=== PATIENT | female | born 1960 | race African-American/Black ===

== ENCOUNTER 2020-03-09 06:43 | Emergency (ER) | payer BC ==
[2020-03-09 07:05] VITALS: BP 169/110; PULSE 90; TEMP 97; BMI 35.9
[2020-03-09] MEDS ORDERED: metroNIDAZOLE 500 MG TABLET PO ONE (07:33)
[2020-03-09] MEDS ORDERED: metroNIDAZOLE 250 MG TABLET ONE (07:41)
[2020-03-09 10:54] LABS: EPI CELLS >36 /uL (0-25.1); HYALINE CASTS 1 /uL (0-3.1); URINE APPEARANCE CLOUDY; URINE BACTERIA 903 /uL (0-1359); URINE BILIRUBIN NEGATIVE (NEGATIVE); URINE COLOR YELLOW; URINE GLUCOSE (UA) NEGATIVE (NEGATIVE); URINE KETONE NEGATIVE (NEGATIVE); URINE LEUK ESTERASE 2+ (NEGATIVE); URINE NITRITE NEGATIVE (NEGATIVE); URINE PROTEIN 3+ (NEGATIVE); URINE RBC 19 /uL (0-23.9); URINE UROBILINOGEN 0.2 mg/dL (0.2-1.0); URINE WBC 251 /uL (0-25.8)
== END 2020-03-09 08:01 | disposition home or self-care (01) ==
LOC: JER 06:43
DX: N76.0 Acute vaginitis (principal)
CPT/HCPCS: 81003; 87070; 87077; 87086; 87205; 99283-25

== ENCOUNTER 2020-03-17 03:26 | Inpatient (IN) | payer BC ==
[2020-03-17] MEDS ORDERED: ASPIRIN 81 MG CHEWABLE TABLETS PO ONE (03:49)
[2020-03-17] MEDS ORDERED: ASPIRIN 81 MG CHEWABLE TABLETS ONE (03:53)
[2020-03-17 04:03] LABS: BASO % 0.9 % (0-2.0); EOS % 2.3 % (0-4.5); HEMATOCRIT 37.9 % (32.4-45.2); HEMOGLOBIN 12.2 GM/dL (10.7-15.3); LYMPH % 17.7 % (8-40); MCH 25.1 pg (25.7-33.7); MCHC 32.2 g/dl (32.0-36.0); MEAN CELL VOLUME 78.1 fl (80-96); MEAN PLT VOLUME 8.6 fl (7.5-11.1); MONO % 7.8 % (3.8-10.2); NEUT % 71.3 % (42.8-82.8); PLATELET COUNT 223 K/MM3 (134-434); RBC 4.86 M/mm3 (3.60-5.2); RDW 15.6 % (11.6-15.6); WHITE BLOOD COUNT 8.6 K/mm3 (4.0-10.0)
[2020-03-17] MEDS ORDERED: hydrALAZINE HCL 25 MG TABLET (FP) PO ONE (04:05)
[2020-03-17] MEDS ORDERED: LISINOPRIL 20 MG TABLET PO ONE ×2 (04:06→18:35)
[2020-03-17 04:14] LABS: INR 0.98 (0.83-1.09); PROTHROMBIN TIME (PATIENT) 11.9 SEC (9.7-13.0)
[2020-03-17] MEDS ORDERED: LISINOPRIL 20 MG TABLET ONE (04:15)
[2020-03-17] MEDS ORDERED: hydrALAZINE HCL 25 MG TABLET (FP) ONE (04:15)
[2020-03-17 04:20] LABS: CHLORIDE 109 mmol/L (98-107); SODIUM 141 mmol/L (136-145)
[2020-03-17 04:23] LABS: ALBUMIN 3.2 g/dl (3.4-5.0); ANION GAP 5 MMOL/L (8-16); BLOOD UREA NITROGEN 15.5 mg/dL (7-18); CALCIUM 8.5 mg/dL (8.5-10.1); CO2 26 mmol/L (21-32)
[2020-03-17 04:24] LABS: GLUCOSE,RANDOM 100 mg/dL (74-106)
[2020-03-17 04:26] LABS: SGPT/ALT 26 U/L (13-61)
[2020-03-17 04:27] LABS: SGOT/AST 27 U/L (15-37)
[2020-03-17 04:28] LABS: TOT PROT 7.1 g/dl (6.4-8.2)
[2020-03-17 04:29] LABS: ALK PHOS 66 U/L (45-117)
[2020-03-17 04:33] LABS: BILIRUBIN,TOTAL 0.2 mg/dL (0.2-1)
[2020-03-17] MEDS ORDERED: DEXAMETHASONE SOD PHOSPHATE 10 MG/1 ML VIAL IVPUSH ONE ×2 (04:48)
[2020-03-17] MEDS ORDERED: AZITHROMYCIN IVPB 500 MG in DEXTROSE 5%-WATER - 250 ML IVPB ONE (04:48)
[2020-03-17 04:51] LABS: MAGNESIUM 2.1 mg/dL (1.8-2.4)
[2020-03-17 04:55] LABS: PHOSPHOROUS 3.3 mg/dL (2.5-4.9)
[2020-03-17] MEDS ORDERED: DEXAMETHASONE SOD PHOSPHATE 10 MG/1 ML VIAL ONE (04:56)
[2020-03-17] MEDS ORDERED: AZITHROMYCIN IVPB 500 MG/250 ML BAG IVPB ONE (04:56)
[2020-03-17 04:59] LABS: LDH 233 U/L (84-246); N-TERMINAL BNP 1215.1 pg/ml (5-125)
[2020-03-17] MEDS: NITROGLYCERIN SUBLINGUAL 1/150 0.4 MG TAB SL SCH (05:04)
[2020-03-17 07:24] LABS: LDH 190 U/L (84-246)
[2020-03-17] MEDS ORDERED: PANTOPRAZOLE 40 MG TABLET PO ONE (08:15)
[2020-03-17] MEDS ORDERED: ATORVASTATIN CA 40 MG TABLET (FP) PO ONE (08:15)
[2020-03-17] MEDS ORDERED: CEFTRIAXONE 1 GM in DEXTROSE 5%-WATER - 50 ML IVPB ONE (08:15)
[2020-03-17] MEDS ORDERED: ZINC SULFATE 220 MG CAPSULE (FP) ONE (09:27)
[2020-03-17] MEDS ORDERED: PANTOPRAZOLE 40 MG TABLET ONE (09:27)
[2020-03-17] MEDS ORDERED: ASCORBIC ACID 500 MG TABLET (FP) ONE (09:27)
[2020-03-17] MEDS ORDERED: CEFTRIAXONE 1 GM/50 ML BAG ONE (09:28)
[2020-03-17] MEDS ORDERED: ATORVASTATIN CA 40 MG TABLET (FP) ONE (09:28)
[2020-03-17] MEDS: ASCORBIC ACID 500 MG TABLET (FP) PO SCH ×2 (09:29→21:57)
[2020-03-17] MEDS ORDERED: ZINC SULFATE 220 MG CAPSULE (FP) PO SCH ×2 (10:00)
[2020-03-17] MEDS ORDERED: ASCORBIC ACID 500 MG TABLET (FP) PO SCH (10:00)
[2020-03-17] MEDS ORDERED: ENOXAPARIN NA (PORCINE) 40 MG/0.4 ML DISP.SYRIN SQ ONE (15:06)
[2020-03-17] MEDS: ENOXAPARIN NA (PORCINE) 40 MG/0.4 ML DISP.SYRIN SQ SCH (15:09)
[2020-03-17 18:49] VITALS: BMI 36.6
[2020-03-17] MEDS ORDERED: PNEUMOC 13-VAL CONJ-DIP CRM/PF 0.5 ML DISP.SYRIN IM ONE (18:49)
[2020-03-17] MEDS ORDERED: PNEUMOCOCCAL 23 VACCINE 0.5 ML VIAL IM ONE (19:30)
[2020-03-18] MEDS ORDERED: cefTRIAXone SODIUM 1 GM VIAL ONE (09:33)
[2020-03-18] MEDS ORDERED: DEXTROSE 5%-WATER - 50 ML IVPB ONE (09:34)
[2020-03-18] MEDS ORDERED: AZITHROMYCIN IVPB 500 MG/250 ML BAG IVPB SCH (10:00)
[2020-03-18] MEDS: ZINC SULFATE 220 MG CAPSULE (FP) PO SCH (10:18)
[2020-03-18] MEDS: ENOXAPARIN NA (PORCINE) 40 MG/0.4 ML DISP.SYRIN SQ SCH (10:18)
[2020-03-18] MEDS: ASCORBIC ACID 500 MG TABLET (FP) PO SCH ×2 (10:18→22:08)
[2020-03-18] MEDS: CEFTRIAXONE 1 GM in DEXTROSE 5%-WATER - 50 ML IVPB SCH (10:36)
[2020-03-18 11:18] LABS: BASO % 0.4 % (0-2.0); EOS % 0.7 % (0-4.5); HEMATOCRIT 36.5 % (32.4-45.2); HEMOGLOBIN 11.5 GM/dL (10.7-15.3); LYMPH % 17.8 % (8-40); MCH 24.9 pg (25.7-33.7); MCHC 31.5 g/dl (32.0-36.0); MEAN PLT VOLUME 9.1 fl (7.5-11.1); MONO % 9.6 % (3.8-10.2); NEUT % 71.5 % (42.8-82.8); PLATELET COUNT 225 K/MM3 (134-434); RBC 4.62 M/mm3 (3.60-5.2); RDW 15.8 % (11.6-15.6); WHITE BLOOD COUNT 11.6 K/mm3 (4.0-10.0)
[2020-03-18 12:11] LABS: ALBUMIN 2.9 g/dl (3.4-5.0); ALK PHOS 58 U/L (45-117); ANION GAP 9 MMOL/L (8-16); BILIRUBIN,TOTAL 0.2 mg/dL (0.2-1); CALCIUM 8.6 mg/dL (8.5-10.1); CHLORIDE 110 mmol/L (98-107); CO2 21 mmol/L (21-32); CREATININE 1.1 mg/dL (0.55-1.3); GLUCOSE,RANDOM 87 mg/dL (74-106); POTASSIUM 4.1 mmol/L (3.5-5.1); SGOT/AST 19 U/L (15-37); SGPT/ALT 22 U/L (13-61); SODIUM 139 mmol/L (136-145); TOT PROT 6.6 g/dl (6.4-8.2)
[2020-03-18 12:23] LABS: LDH QNS U/L (84-246)
[2020-03-18] MEDS: DOXYCYCLINE HYCLATE 100 MG CAPSULE PO SCH (18:01)
[2020-03-18] MEDS ORDERED: hydrALAZINE HCL 25 MG TABLET (FP) PO ONE (19:47)
[2020-03-18] MEDS ORDERED: PATIENT'S OWN MEDICATION (NON-FORMULARY) (Lisinopril/Hydrochlorothiazide [Lisinopril-Hctz PO SCH (22:00)
[2020-03-18] MEDS ORDERED: hydrALAZINE HCL 25 MG TABLET (FP) PO SCH (22:00)
[2020-03-18] MEDS: HYDROCHLOROTHIAZIDE 12.5 MG CAPSULE (FP) PO SCH (22:08)
[2020-03-18] MEDS: LISINOPRIL 20 MG TABLET PO SCH (22:08)
[2020-03-18] MEDS: hydrALAZINE HCL 25 MG TABLET (FP) PO SCH (22:09)
[2020-03-19] MEDS: hydrALAZINE HCL 25 MG TABLET (FP) PO SCH (05:34)
[2020-03-19 07:07] LABS: HEMOGLOBIN 12.4 GM/dL (10.7-15.3); MCH 25.5 pg (25.7-33.7); MCHC 32.5 g/dl (32.0-36.0); MEAN CELL VOLUME 78.3 fl (80-96); MEAN PLT VOLUME 8.5 fl (7.5-11.1); PLATELET COUNT 241 K/MM3 (134-434); RBC 4.85 M/mm3 (3.60-5.2); RDW 15.8 % (11.6-15.6); WHITE BLOOD COUNT 9.9 K/mm3 (4.0-10.0)
[2020-03-19 07:25] LABS: CALCIUM 8.4 mg/dL (8.5-10.1)
[2020-03-19 07:26] LABS: ALBUMIN 2.9 g/dl (3.4-5.0); BLOOD UREA NITROGEN 18.5 mg/dL (7-18)
[2020-03-19 07:29] LABS: CREATININE 1.2 mg/dL (0.55-1.3)
[2020-03-19 07:30] LABS: BILIRUBIN,TOTAL 0.3 mg/dL (0.2-1)
[2020-03-19 07:31] LABS: TOT PROT 6.6 g/dl (6.4-8.2)
[2020-03-19] MEDS ORDERED: amLODIPine BESYLATE 5 MG TABLET (FP) PO ONE (07:39)
[2020-03-19] MEDS ORDERED: ATORVASTATIN CA 10 MG TABLET (FP) PO SCH (10:00)
[2020-03-19] MEDS ORDERED: cefTRIAXone SODIUM 1 GM VIAL ONE (10:27)
[2020-03-19] MEDS ORDERED: DEXTROSE 5%-WATER - 50 ML IVPB ONE (10:28)
[2020-03-19] MEDS: ASCORBIC ACID 500 MG TABLET (FP) PO SCH (10:52)
[2020-03-19] MEDS: HYDROCHLOROTHIAZIDE 12.5 MG CAPSULE (FP) PO SCH (10:52)
[2020-03-19] MEDS: DOXYCYCLINE HYCLATE 100 MG CAPSULE PO SCH ×2 (10:52→18:33)
[2020-03-19] MEDS: LISINOPRIL 20 MG TABLET PO SCH (10:52)
[2020-03-19] MEDS: ZINC SULFATE 220 MG CAPSULE (FP) PO SCH (10:52)
[2020-03-19] MEDS: CEFTRIAXONE 1 GM in DEXTROSE 5%-WATER - 50 ML IVPB SCH (10:53)
[2020-03-19] MEDS: ENOXAPARIN NA (PORCINE) 40 MG/0.4 ML DISP.SYRIN SQ SCH (10:53)
[2020-03-19 12:05] LABS: HIV INTERPRETATION NEGATIVE (NEGATIVE)
[2020-03-19 14:09] VITALS: TEMP 98.8
[2020-03-19 14:23] VITALS: BP 153/97; PULSE 80
[2020-03-19 15:56] LABS: MAGNESIUM 2.1 mg/dL (1.8-2.4)
[2020-03-19 16:00] LABS: PHOSPHOROUS 3.7 mg/dL (2.5-4.9)
[2020-03-19] MEDS ORDERED: hydrALAZINE HCL 50 MG TABLET (FP) PO SCH (22:00)
[2020-03-19] MEDS ORDERED: METOPROLOL TARTRATE 50 MG TABLET (FP) PO SCH (22:00)
[2020-03-20] MEDS ORDERED: amLODIPine BESYLATE 5 MG TABLET (FP) PO SCH (10:00)
[2020-03-20] MEDS ORDERED: SPIRONOLACTONE 25 MG TABLET PO SCH (10:00)
== END 2020-03-19 18:42 | disposition home or self-care (01) | DRG 194 ==
LOC: JER 03:26 → JERBED 04:55 → J4W 17:52
PROVIDERS: ATTEND Internal Medicine
DX: J18.9 Pneumonia, unspecified organism (principal); I42.8 Other cardiomyopathies; I50.22 Chronic systolic (congestive) heart failure; I24.8 Other forms of acute ischemic heart disease; R07.89 Other chest pain; I10 Essential (primary) hypertension; E78.5 Hyperlipidemia, unspecified; H81.10 Benign paroxysmal vertigo, unspecified ear; F41.9 Anxiety disorder, unspecified; E66.9 Obesity, unspecified; Z68.36 Body mass index [BMI] 36.0-36.9, adult; H81.01 Meniere's disease, right ear; Z20.828 Contact with and (suspected) exposure to other viral communicable diseases; R59.0 Localized enlarged lymph nodes; R06.00 Dyspnea, unspecified; I11.0 Hypertensive heart disease with heart failure; R91.8 Other nonspecific abnormal finding of lung field
CPT/HCPCS: 36415; 71045-TC-FY; 71275-TC; 80053; 82550; 82553; 82728; 83615; 83735; 83880; 84100; 84443; 84484; 85025; 85027; 85379; 85610; 85651; 85730; 86140; 86850; 86900; 86901; 87389; 87804; 93005; 93010; 93306-TC; 93970-TC; 99285-25; C9803; J1100; Q9967; U0003

== ENCOUNTER 2020-08-07 07:25 | Emergency (ER) | payer BC ==
[2020-08-07 07:34] VITALS: BMI 35.3
[2020-08-07] MEDS ORDERED: ACETAMINOPHEN 500 MG TABLET (FP) PO ONE (08:56)
[2020-08-07] MEDS ORDERED: ACETAMINOPHEN 325 MG TABLET (FP) ONE (09:00)
[2020-08-07 09:54] VITALS: BP 180/102; PULSE 75; TEMP 98
== END 2020-08-07 09:40 | disposition home or self-care (01) ==
LOC: JER 07:25
DX: M25.522 Pain in left elbow (principal)
CPT/HCPCS: 99283-25

== ENCOUNTER 2020-10-12 00:10 | Inpatient (IN) | payer BC ==
[2020-10-12] MEDS ORDERED: ALBUTEROL SO4 2.5/IPRATROPIUM 0.5 INH SOL 3 ML VIAL.NEB. NEB ONE (00:14)
[2020-10-12 00:35] LABS: BASO % 0.9 % (0-2.0); EOS % 2.1 % (0-4.5); HEMATOCRIT 38.4 % (32.4-45.2); HEMOGLOBIN 12.1 GM/dL (10.7-15.3); LYMPH % 37.6 % (8-40); MCH 25.2 pg (25.7-33.7); MCHC 31.5 g/dl (32.0-36.0); MEAN PLT VOLUME 8.2 fl (7.5-11.1); MONO % 7.2 % (3.8-10.2); NEUT % 52.2 % (42.8-82.8); PLATELET COUNT 244 10^3/uL (134-434); RDW 15.3 % (11.6-15.6); WHITE BLOOD COUNT 19.7 K/mm3 (4.0-10.0)
[2020-10-12] MEDS ORDERED: LABETALOL HCL 5 MG/1 ML (100MG/20 ML VIAL) IVPUSH ONE (00:35)
[2020-10-12] MEDS ORDERED: methylPREDNISolone NA SUCC 125 MG/2 ML VIAL IVPUSH ONE (00:35)
[2020-10-12 00:37] LABS: VENOUS BASE EXCESS -6.8 mmol/L (-2-2); VENOUS O2 SATURATION 78.4 % (70-80); VENOUS PCO2 66.2 mmHg (38-52)
[2020-10-12] MEDS ORDERED: ALBUTEROL SO4 0.5 % INH SOLN 2.5 MG/0.5 ML VIAL.NEB. NEB ONE (00:37)
[2020-10-12] MEDS ORDERED: LABETALOL HCL 5 MG/1 ML (100MG/20 ML VIAL) ONE (00:37)
[2020-10-12] MEDS: ALBUTEROL SO4 2.5/IPRATROPIUM 0.5 INH SOL 3 ML VIAL.NEB. NEB SCH (00:37)
[2020-10-12] MEDS ORDERED: ALBUTEROL SO4 0.5 % INH SOLN 2.5 MG/0.5 ML VIAL.NEB. NEB PRN (00:39)
[2020-10-12] MEDS: NITROGLYCERIN SUBLINGUAL 1/150 0.4 MG TAB SL PRN ×2 (00:40→00:45)
[2020-10-12 00:41] LABS: VENOUS PH 7.158 (7.310-7.410)
[2020-10-12] MEDS ORDERED: NITROGLYCERIN 25MG/D5W 250ML 25 MG/250 ML ML IVPB SCH ×3 (00:45→08:00)
[2020-10-12] MEDS ORDERED: methylPREDNISolone NA SUCC 125 MG/2 ML VIAL ONE (00:46)
[2020-10-12] MEDS ORDERED: FUROSEMIDE 40 MG/4 ML INJECTABLE VIAL IVPUSH ONE (00:50)
[2020-10-12] MEDS ORDERED: ALBUTEROL SO4 0.083% IH SOL 2.5 MG/3 ML VIAL.NEB. NEB ONE (00:58)
[2020-10-12 01:03] LABS: CALCIUM 8.3 mg/dL (8.5-10.1)
[2020-10-12] MEDS: ALBUTEROL SO4 0.5 % INH SOLN 2.5 MG/0.5 ML VIAL.NEB. NEB PRN ×4 (01:03→01:35)
[2020-10-12 01:04] LABS: ALBUMIN 3.1 g/dl (3.4-5.0); BLOOD UREA NITROGEN 24.7 mg/dL (7-18); MAGNESIUM 2.1 mg/dL (1.8-2.4)
[2020-10-12] MEDS ORDERED: FUROSEMIDE 40 MG/4 ML INJECTABLE VIAL ONE (01:04)
[2020-10-12 01:07] LABS: CREATININE 1.5 mg/dL (0.55-1.3)
[2020-10-12 01:08] LABS: BILIRUBIN,TOTAL 0.4 mg/dL (0.2-1); TOT PROT 7.6 g/dl (6.4-8.2)
[2020-10-12] MEDS ORDERED: ASPIRIN 81 MG CHEWABLE TABLETS PO ONE (01:13)
[2020-10-12 01:27] VITALS: BMI 34.3
[2020-10-12 01:27] LABS: LACTIC ACID 5.5 mmol/L (0.4-2.0)
[2020-10-12 02:15] LABS: N-TERMINAL BNP 2061.3 pg/ml (5-125)
[2020-10-12] MEDS ORDERED: ASPIRIN 81 MG CHEWABLE TABLETS ONE (02:27)
[2020-10-12 02:58] LABS: ARTERIAL BLD GAS O2 SATURATION 94.7 % (95-98); ARTERIAL BLOOD GAS BASE EXCESS -2.3 mmol/L (-2-2); ARTERIAL BLOOD GAS PO2 76.7 mmHg (80-100); ARTERIAL BLOOD GAS pH 7.351 (7.350-7.450)
[2020-10-12 03:01] LABS: ALLENS TEST POSITIVE
[2020-10-12 03:02] LABS: VENT RATE 16
[2020-10-12] MEDS ORDERED: ACETAMINOPHEN 325 MG TABLET (FP) PO PRN (03:11)
[2020-10-12] MEDS ORDERED: AZITHROMYCIN IVPB 500 MG/250 ML BAG IVPB ONE ×2 (03:21→03:37)
[2020-10-12] MEDS ORDERED: ALBUTEROL SO4 HFA INHALER IH PRN (03:21)
[2020-10-12] MEDS ORDERED: ALBUTEROL SO4 2.5/IPRATROPIUM 0.5 INH SOL 3 ML VIAL.NEB. NEB PRN (03:21)
[2020-10-12] MEDS: methylPREDNISolone NA SUCC 40 MG/1 ML VIAL IVPUSH SCH ×3 (03:47→17:45)
[2020-10-12] MEDS ORDERED: PT OWN MED DRAWER 7, Y5N ONE (06:39)
[2020-10-12] MEDS: BUDESONIDE/FORMETEROL FUMARATE 160/4.5 mcg INHALER IH SCH ×3 (06:39→21:59)
[2020-10-12 07:09] LABS: BASO % 0.3 % (0-2.0); EOS % 0.1 % (0-4.5); HEMATOCRIT 35.9 % (32.4-45.2); HEMOGLOBIN 11.6 GM/dL (10.7-15.3); LYMPH % 4.5 % (8-40); MCH 25.3 pg (25.7-33.7); MCHC 32.4 g/dl (32.0-36.0); MEAN CELL VOLUME 78.3 fl (80-96); MEAN PLT VOLUME 8.3 fl (7.5-11.1); MONO % 1.9 % (3.8-10.2); NEUT % 93.2 % (42.8-82.8); PLATELET COUNT 194 10^3/uL (134-434); RBC 4.58 M/mm3 (3.60-5.2); RDW 14.8 % (11.6-15.6); WHITE BLOOD COUNT 10.1 K/mm3 (4.0-10.0)
[2020-10-12 07:26] LABS: ALBUMIN 3.2 g/dl (3.4-5.0); BLOOD UREA NITROGEN 26.3 mg/dL (7-18); CALCIUM 8.4 mg/dL (8.5-10.1); MAGNESIUM 1.7 mg/dL (1.8-2.4)
[2020-10-12 07:29] LABS: CREATININE 1.3 mg/dL (0.55-1.3)
[2020-10-12 07:30] LABS: PHOSPHOROUS 3.4 mg/dL (2.5-4.9); TOT PROT 7.2 g/dl (6.4-8.2)
[2020-10-12 07:31] LABS: BILIRUBIN,TOTAL 0.4 mg/dL (0.2-1)
[2020-10-12] MEDS ORDERED: HEPARIN NA (PORCINE) 5,000 UNITS/ML 1ML VIAL ONE (07:39)
[2020-10-12] MEDS: HEPARIN NA (PORCINE) 5,000 UNITS/ML 1ML VIAL SQ SCH ×3 (07:55→21:28)
[2020-10-12] MEDS ORDERED: POTASSIUM CHLORIDE TABS 20 MEQ TABLET.ER (FP) PO ONE ×2 (08:26→11:35)
[2020-10-12] MEDS ORDERED: MAGNESIUM OXIDE 400 MG TABLET (FP) PO ONE ×2 (08:26→11:35)
[2020-10-12] MEDS ORDERED: cefTRIAXone SODIUM 1 GM VIAL ONE (10:35)
[2020-10-12] MEDS ORDERED: DEXTROSE 5%-WATER - 50 ML IVPB ONE (10:35)
[2020-10-12] MEDS: FUROSEMIDE 40 MG/4 ML INJECTABLE VIAL IVPUSH SCH (10:38)
[2020-10-12] MEDS: METOPROLOL TARTRATE 50 MG TABLET (FP) PO SCH ×2 (10:38→21:28)
[2020-10-12] MEDS: hydrALAZINE HCL 25 MG TABLET (FP) PO SCH ×2 (10:38→21:28)
[2020-10-12] MEDS: CEFTRIAXONE 1 GM in DEXTROSE 5%-WATER - 50 ML IVPB SCH (10:38)
[2020-10-12 11:14] LABS: ANISOCYTOSIS 1+; MACROCYTOSIS 0; OVALOCYTE 1+; PLATELET ESTIMATE NORMAL; TEAR DROP CELLS 1+
[2020-10-12] MEDS ORDERED: LISINOPRIL 10 MG TABLET PO ONE (11:34)
[2020-10-12] MEDS: ATORVASTATIN CA 40 MG TABLET (FP) PO SCH (21:28)
[2020-10-12] MEDS: INSULIN SLIDING SCALE (NOVOLOG) 1 VIAL SQ SCH (21:37)
[2020-10-12 23:45] LABS: EPI CELLS >36 /uL (0-25.1); HYALINE CASTS 1 /uL (0-3.1); PH,URINE 5.5 (5.0-8.0); URINE APPEARANCE CLEAR; URINE BACTERIA 279 /uL (0-1359); URINE BILIRUBIN NEGATIVE (NEGATIVE); URINE COLOR YELLOW; URINE GLUCOSE (UA) NEGATIVE (NEGATIVE); URINE KETONE NEGATIVE (NEGATIVE); URINE LEUK ESTERASE NEGATIVE (NEGATIVE); URINE NITRITE NEGATIVE (NEGATIVE); URINE PROTEIN 3+ (NEGATIVE); URINE RBC 18 /uL (0-23.9); URINE UROBILINOGEN 0.2 mg/dL (0.2-1.0); URINE WBC 11 /uL (0-25.8)
[2020-10-13] MEDS: methylPREDNISolone NA SUCC 40 MG/1 ML VIAL IVPUSH SCH ×4 (01:06→21:15)
[2020-10-13] MEDS: HEPARIN NA (PORCINE) 5,000 UNITS/ML 1ML VIAL SQ SCH ×3 (06:23→21:15)
[2020-10-13 07:11] LABS: BASO % 0.2 % (0-2.0); HEMATOCRIT 37.9 % (32.4-45.2); LYMPH % 4.9 % (8-40); MCH 24.9 pg (25.7-33.7); MCHC 31.8 g/dl (32.0-36.0); MEAN CELL VOLUME 78.3 fl (80-96); MONO % 3.6 % (3.8-10.2); NEUT % 91.3 % (42.8-82.8); PLATELET COUNT 207 10^3/uL (134-434); RBC 4.84 M/mm3 (3.60-5.2); RDW 15.2 % (11.6-15.6); WHITE BLOOD COUNT 20.2 K/mm3 (4.0-10.0)
[2020-10-13] MEDS: INSULIN SLIDING SCALE (NOVOLOG) 1 VIAL SQ SCH ×4 (07:23→21:16)
[2020-10-13 07:38] LABS: ALBUMIN 3.1 g/dl (3.4-5.0); BLOOD UREA NITROGEN 31.4 mg/dL (7-18); CALCIUM 8.3 mg/dL (8.5-10.1); MAGNESIUM 2.3 mg/dL (1.8-2.4)
[2020-10-13 07:40] LABS: CREATININE 1.2 mg/dL (0.55-1.3)
[2020-10-13 07:42] LABS: BILIRUBIN,TOTAL 0.2 mg/dL (0.2-1); TOT PROT 7.2 g/dl (6.4-8.2)
[2020-10-13 10:40] LABS: ANISOCYTOSIS 0; HELMET CELLS 0; HOWELL-JOLLY BODIES 0; MACROCYTOSIS 0; OVALOCYTE 0; PLATELET ESTIMATE NORMAL; ROULEAU 0; SICKELED CELLS 0; TARGET CELLS 0; TEAR DROP CELLS 0; TOXIC GRANULATION 0
[2020-10-13] MEDS ORDERED: DEXTROSE 5%-WATER - 50 ML IVPB ONE (10:54)
[2020-10-13] MEDS ORDERED: cefTRIAXone SODIUM 1 GM VIAL ONE (10:54)
[2020-10-13] MEDS: METOPROLOL TARTRATE 50 MG TABLET (FP) PO SCH ×2 (11:26→21:15)
[2020-10-13] MEDS: FUROSEMIDE 40 MG/4 ML INJECTABLE VIAL IVPUSH SCH (11:26)
[2020-10-13] MEDS: LISINOPRIL 10 MG TABLET PO SCH (11:26)
[2020-10-13] MEDS: hydrALAZINE HCL 25 MG TABLET (FP) PO SCH (11:26)
[2020-10-13] MEDS: CEFTRIAXONE 1 GM in DEXTROSE 5%-WATER - 50 ML IVPB SCH (11:27)
[2020-10-13] MEDS: BUDESONIDE/FORMETEROL FUMARATE 160/4.5 mcg INHALER IH SCH ×2 (11:28→21:16)
[2020-10-13] MEDS: AZITHROMYCIN IVPB 250 MG in DEXTROSE 5%-WATER - 250 ML IVPB SCH (11:28)
[2020-10-13] MEDS ORDERED: INSULIN (NOVOLOG) ASPART 100 UNITS/ML 10ML VIAL ONE (14:09)
[2020-10-13] MEDS ORDERED: hydrALAZINE HCL 20 MG/ML VIAL IVPUSH ONE (18:02)
[2020-10-13] MEDS: ATORVASTATIN CA 40 MG TABLET (FP) PO SCH (21:15)
[2020-10-13] MEDS: hydrALAZINE HCL 50 MG TABLET (FP) PO SCH (21:15)
[2020-10-14] MEDS: HEPARIN NA (PORCINE) 5,000 UNITS/ML 1ML VIAL SQ SCH ×3 (06:15→21:20)
[2020-10-14] MEDS: hydrALAZINE HCL 50 MG TABLET (FP) PO SCH ×3 (06:15→21:21)
[2020-10-14] MEDS: INSULIN SLIDING SCALE (NOVOLOG) 1 VIAL SQ SCH ×4 (06:16→21:25)
[2020-10-14 07:19] LABS: BASO % 0.3 % (0-2.0); HEMATOCRIT 40.1 % (32.4-45.2); LYMPH % 5.4 % (8-40); MCH 25.5 pg (25.7-33.7); MCHC 32.4 g/dl (32.0-36.0); MEAN CELL VOLUME 78.8 fl (80-96); MEAN PLT VOLUME 8.6 fl (7.5-11.1); MONO % 3.1 % (3.8-10.2); NEUT % 91.2 % (42.8-82.8); PLATELET COUNT 191 10^3/uL (134-434); RBC 5.09 M/mm3 (3.60-5.2); RDW 15.1 % (11.6-15.6); WHITE BLOOD COUNT 18.9 K/mm3 (4.0-10.0)
[2020-10-14] MEDS: LISINOPRIL 10 MG TABLET PO SCH ×2 (08:28→10:27)
[2020-10-14 08:29] LABS: CALCIUM 8.7 mg/dL (8.5-10.1)
[2020-10-14] MEDS: METOPROLOL TARTRATE 50 MG TABLET (FP) PO SCH ×3 (08:29→21:21)
[2020-10-14 08:30] LABS: BLOOD UREA NITROGEN 34.8 mg/dL (7-18); MAGNESIUM 2.6 mg/dL (1.8-2.4)
[2020-10-14] MEDS: BUDESONIDE/FORMETEROL FUMARATE 160/4.5 mcg INHALER IH SCH ×3 (08:30→21:26)
[2020-10-14] MEDS: methylPREDNISolone NA SUCC 40 MG/1 ML VIAL IVPUSH SCH ×3 (08:32→21:20)
[2020-10-14 08:33] LABS: CREATININE 1.3 mg/dL (0.55-1.3)
[2020-10-14 08:34] LABS: BILIRUBIN,TOTAL 0.2 mg/dL (0.2-1); TOT PROT 6.9 g/dl (6.4-8.2)
[2020-10-14] MEDS ORDERED: cefTRIAXone SODIUM 1 GM VIAL ONE (09:24)
[2020-10-14] MEDS ORDERED: DEXTROSE 5%-WATER - 50 ML IVPB ONE (09:24)
[2020-10-14] MEDS ORDERED: REGADENOSON 0.4 MG/5 ML PRE-FILLED SYRINGE IVPUSH ONE ×2 (09:27→12:00)
[2020-10-14 09:32] LABS: ANISOCYTOSIS 0; MACROCYTOSIS 0; PLATELET ESTIMATE NORMAL
[2020-10-14] MEDS: FUROSEMIDE 40 MG/4 ML INJECTABLE VIAL IVPUSH SCH (12:17)
[2020-10-14] MEDS: AZITHROMYCIN IVPB 250 MG in DEXTROSE 5%-WATER - 250 ML IVPB SCH (12:17)
[2020-10-14] MEDS: CEFTRIAXONE 1 GM in DEXTROSE 5%-WATER - 50 ML IVPB SCH (12:17)
[2020-10-14] MEDS: ATORVASTATIN CA 40 MG TABLET (FP) PO SCH (21:21)
[2020-10-15] MEDS: hydrALAZINE HCL 50 MG TABLET (FP) PO SCH ×2 (05:48→13:19)
[2020-10-15] MEDS: HEPARIN NA (PORCINE) 5,000 UNITS/ML 1ML VIAL SQ SCH ×2 (05:48→13:18)
[2020-10-15] MEDS: INSULIN SLIDING SCALE (NOVOLOG) 1 VIAL SQ SCH ×2 (06:00→12:19)
[2020-10-15 07:18] LABS: BASO % 0.1 % (0-2.0); HEMATOCRIT 38.8 % (32.4-45.2); HEMOGLOBIN 12.5 GM/dL (10.7-15.3); MCH 25.1 pg (25.7-33.7); MCHC 32.3 g/dl (32.0-36.0); MEAN CELL VOLUME 77.9 fl (80-96); MEAN PLT VOLUME 8.6 fl (7.5-11.1); MONO % 5.1 % (3.8-10.2); NEUT % 87.8 % (42.8-82.8); PLATELET COUNT 238 10^3/uL (134-434); RBC 4.99 M/mm3 (3.60-5.2); WHITE BLOOD COUNT 16.6 K/mm3 (4.0-10.0)
[2020-10-15 07:48] LABS: CALCIUM 8.7 mg/dL (8.5-10.1)
[2020-10-15 07:50] LABS: MAGNESIUM 2.5 mg/dL (1.8-2.4)
[2020-10-15 07:53] LABS: CREATININE 1.4 mg/dL (0.55-1.3)
[2020-10-15 07:54] LABS: BILIRUBIN,TOTAL 0.2 mg/dL (0.2-1)
[2020-10-15 09:22] LABS: ANISOCYTOSIS 0; MACROCYTOSIS 0; PLATELET ESTIMATE NORMAL
[2020-10-15] MEDS ORDERED: DEXTROSE 5%-WATER - 50 ML IVPB ONE (10:04)
[2020-10-15] MEDS ORDERED: cefTRIAXone SODIUM 1 GM VIAL ONE (10:04)
[2020-10-15] MEDS: methylPREDNISolone NA SUCC 40 MG/1 ML VIAL IVPUSH SCH (10:31)
[2020-10-15] MEDS: LISINOPRIL 10 MG TABLET PO SCH (10:31)
[2020-10-15] MEDS: AZITHROMYCIN IVPB 250 MG in DEXTROSE 5%-WATER - 250 ML IVPB SCH (10:32)
[2020-10-15] MEDS: BUDESONIDE/FORMETEROL FUMARATE 160/4.5 mcg INHALER IH SCH (10:32)
[2020-10-15] MEDS: METOPROLOL TARTRATE 50 MG TABLET (FP) PO SCH (10:32)
[2020-10-15] MEDS: CEFTRIAXONE 1 GM in DEXTROSE 5%-WATER - 50 ML IVPB SCH (10:32)
[2020-10-15 15:00] VITALS: BP 149/98; PULSE 66; TEMP 98.4
== END 2020-10-15 14:28 | disposition short-term general hospital (02) | DRG 291 ==
LOC: JER 00:10 → JERBED 06:29 → J4W 09:51
PROVIDERS: ADMIT Internal Medicine; ATTEND Nurse Practitioner Family
DX: I13.0 Hypertensive heart and chronic kidney disease with heart failure and stage 1 through stage 4 chronic kidney disease, or unspecified chronic kidney disease (principal); J96.01 Acute respiratory failure with hypoxia; J96.02 Acute respiratory failure with hypercapnia; I50.43 Acute on chronic combined systolic (congestive) and diastolic (congestive) heart failure; J18.9 Pneumonia, unspecified organism; N17.9 Acute kidney failure, unspecified; E78.5 Hyperlipidemia, unspecified; F41.9 Anxiety disorder, unspecified; I42.8 Other cardiomyopathies; N18.9 Chronic kidney disease, unspecified; E66.01 Morbid (severe) obesity due to excess calories; Z68.36 Body mass index [BMI] 36.0-36.9, adult
CPT/HCPCS: 36415; 36600; 71045-TC-FY; 71260-TC; 78452-TC; 80053; 80061; 81003; 82550; 82553; 82570; 82803; 82962; 83036; 83605; 83721; 83735; 83880; 84100; 84156; 84484; 85025; 87804; 93005; 93010; 93017; 93306-TC; 94660; 97116-GP; 97161-GP; 99285-25; A9502; C9803; J1644; J2785; U0003; U0005

== ENCOUNTER 2021-11-09 09:29 | Emergency (ER) | payer BC ==
[2021-11-09 09:38] VITALS: BP 124/91; PULSE 117; RESP 17; TEMP 101; BMI 34.3
[2021-11-09 10:54] LABS: BASO % 0.2 % (0-2.0); HEMATOCRIT 37.3 % (32.4-45.2); HEMOGLOBIN 12.2 GM/dL (10.7-15.3); MCHC 32.7 g/dl (32.0-36.0); MEAN CELL VOLUME 76.4 fl (80-96); MEAN PLT VOLUME 7.9 fl (7.5-11.1); MONO % 9.7 % (3.8-10.2); NEUT % 85.1 % (42.8-82.8); PLATELET COUNT 234 10^3/uL (134-434); RBC 4.89 M/mm3 (3.60-5.2); RDW 14.6 % (11.6-15.6); WHITE BLOOD COUNT 14.7 K/mm3 (4.0-10.0)
[2021-11-09] MEDS ORDERED: IBUPROFEN 400 MG TABLET (FP) PO ONE ×2 (10:54→11:05)
[2021-11-09 10:55] LABS: VENOUS BASE EXCESS 2.8 mmol/L (-2-2); VENOUS O2 SATURATION 51.8 % (70-80); VENOUS PCO2 46.1 mmHg (38-52); VENOUS PH 7.403 (7.310-7.410)
[2021-11-09 11:09] LABS: EPI CELLS >36 /uL (0-25.1); HYALINE CASTS 2 /uL (0-3.1); PH,URINE 5.5 (5.0-8.0); URINE APPEARANCE TURBID; URINE BACTERIA 3428 /uL (0-1359); URINE BILIRUBIN NEGATIVE (NEGATIVE); URINE COLOR YELLOW; URINE GLUCOSE (UA) NEGATIVE (NEGATIVE); URINE KETONE NEGATIVE (NEGATIVE); URINE LEUK ESTERASE 2+ (NEGATIVE); URINE NITRITE NEGATIVE (NEGATIVE); URINE PROTEIN 3+ (NEGATIVE); URINE RBC 38 /uL (0-23.9); URINE UROBILINOGEN 0.2 mg/dL (0.2-1.0); URINE WBC 1230 /uL (0-25.8)
[2021-11-09 11:33] LABS: ALBUMIN 3.6 g/dl (3.4-5.0); BLOOD UREA NITROGEN 23.4 mg/dL (7-18); CALCIUM 9.2 mg/dL (8.5-10.1)
[2021-11-09 11:36] LABS: CREATININE 1.7 mg/dL (0.55-1.3)
[2021-11-09 11:38] LABS: BILIRUBIN,TOTAL 0.6 mg/dL (0.2-1); TOT PROT 8.1 g/dl (6.4-8.2)
[2021-11-09] MEDS ORDERED: SODIUM CHLORIDE 0.9% 500 ML INFUS.BAG IV ONE (11:42)
== END 2021-11-09 13:19 | disposition home or self-care (01) ==
LOC: JER 09:29
DX: N39.0 Urinary tract infection, site not specified (principal)
CPT/HCPCS: 36415; 80053; 81003; 82803; 83605; 85025; 87040; 87086; 87186; 93005; 93010; 99283-25

== ENCOUNTER 2021-11-10 12:45 | Inpatient (IN) | payer BC ==
[2021-11-10] MEDS ORDERED: CEFEPIME HCL/D5W 2 GM/50 ML BAG IVPB ONE (13:21)
[2021-11-10] MEDS ORDERED: CEFEPIME 2 GM/100 ML BAG IVPB ONE (13:40)
[2021-11-10 14:23] LABS: BASO % 0.2 % (0-2.0); EOS % 0.2 % (0-4.5); HEMATOCRIT 33.3 % (32.4-45.2); HEMOGLOBIN 11.3 GM/dL (10.7-15.3); LYMPH % 7.1 % (8-40); MCH 25.7 pg (25.7-33.7); MEAN CELL VOLUME 75.8 fl (80-96); MEAN PLT VOLUME 7.7 fl (7.5-11.1); MONO % 13.1 % (3.8-10.2); NEUT % 79.4 % (42.8-82.8); PLATELET COUNT 194 10^3/uL (134-434); RBC 4.39 M/mm3 (3.60-5.2); RDW 14.6 % (11.6-15.6); WHITE BLOOD COUNT 13.4 K/mm3 (4.0-10.0)
[2021-11-10 14:40] LABS: CALCIUM 8.4 mg/dL (8.5-10.1)
[2021-11-10 14:41] LABS: BLOOD UREA NITROGEN 20.4 mg/dL (7-18)
[2021-11-10 14:44] LABS: CREATININE 1.8 mg/dL (0.55-1.3)
[2021-11-10 14:46] LABS: BILIRUBIN,TOTAL 0.3 mg/dL (0.2-1); TOT PROT 7.2 g/dl (6.4-8.2)
[2021-11-10] MEDS ORDERED: ACETAMINOPHEN 325 MG TABLET (FP) PO PRN (15:41)
[2021-11-10] MEDS ORDERED: SENNOSIDES 8.6MG TABLET (FP) PO PRN (15:41)
[2021-11-10] MEDS ORDERED: ACETAMINOPHEN 325 MG TABLET (FP) ONE (17:43)
[2021-11-10] MEDS: SODIUM CHLORIDE 1,000 ML IV SCH (18:54)
[2021-11-10] MEDS: ATORVASTATIN CA 10 MG TABLET (FP) PO SCH (21:38)
[2021-11-10] MEDS: CEFTRIAXONE 1 GM in DEXTROSE 5%-WATER - 50 ML IVPB SCH (21:38)
[2021-11-10] MEDS: HEPARIN NA (PORCINE) 5,000 UNITS/ML 1ML VIAL SQ SCH (21:38)
[2021-11-10 22:55] VITALS: BMI 36.5
[2021-11-11] MEDS: HEPARIN NA (PORCINE) 5,000 UNITS/ML 1ML VIAL SQ SCH ×3 (06:26→21:49)
[2021-11-11] MEDS: SODIUM CHLORIDE 1,000 ML IV SCH ×2 (08:10→21:48)
[2021-11-11 09:03] LABS: BASO % 0.2 % (0-2.0); HEMATOCRIT 30.8 % (32.4-45.2); HEMOGLOBIN 10.4 GM/dL (10.7-15.3); LYMPH % 8.9 % (8-40); MCH 25.4 pg (25.7-33.7); MCHC 33.8 g/dl (32.0-36.0); MEAN CELL VOLUME 75.1 fl (80-96); MEAN PLT VOLUME 7.7 fl (7.5-11.1); MONO % 12.4 % (3.8-10.2); NEUT % 76.5 % (42.8-82.8); PLATELET COUNT 177 10^3/uL (134-434); RBC 4.11 M/mm3 (3.60-5.2); RDW 14.5 % (11.6-15.6); WHITE BLOOD COUNT 7.9 K/mm3 (4.0-10.0)
[2021-11-11 09:30] LABS: ALBUMIN 2.6 g/dl (3.4-5.0)
[2021-11-11 09:33] LABS: CREATININE 1.5 mg/dL (0.55-1.3); PHOSPHOROUS 2.3 mg/dL (2.5-4.9)
[2021-11-11 09:35] LABS: BILIRUBIN,TOTAL 0.6 mg/dL (0.2-1); TOT PROT 6.6 g/dl (6.4-8.2)
[2021-11-11 09:36] LABS: BLOOD UREA NITROGEN 20.4 mg/dL (7-18)
[2021-11-11] MEDS ORDERED: PATIENT'S OWN MEDICATION (NON-FORMULARY) (Lisinopril/Hydrochlorothiazide [Lisinopril-Hctz PO SCH (10:00)
[2021-11-11] MEDS ORDERED: LISINOPRIL 20 MG TABLET PO SCH (10:00)
[2021-11-11] MEDS ORDERED: HYDROCHLOROTHIAZIDE 12.5 MG CAPSULE (FP) PO SCH (10:00)
[2021-11-11] MEDS ORDERED: ENOXAPARIN NA (PORCINE) 40 MG/0.4 ML DISP.SYRIN SQ SCH (10:00)
[2021-11-11] MEDS: NAPH,MB-DB/K PH,MBDB POWDER PACKET PO SCH ×2 (15:13→21:49)
[2021-11-11] MEDS: ATORVASTATIN CA 10 MG TABLET (FP) PO SCH (21:49)
[2021-11-11] MEDS: CEFTRIAXONE 1 GM in DEXTROSE 5%-WATER - 50 ML IVPB SCH (21:49)
[2021-11-12] MEDS: HEPARIN NA (PORCINE) 5,000 UNITS/ML 1ML VIAL SQ SCH ×3 (06:46→21:35)
[2021-11-12] MEDS: NAPH,MB-DB/K PH,MBDB POWDER PACKET PO SCH (06:47)
[2021-11-12 09:05] LABS: PHOSPHOROUS 3.1 mg/dL (2.5-4.9)
[2021-11-12 09:07] LABS: CREATININE 1.3 mg/dL (0.55-1.3)
[2021-11-12 09:15] LABS: BLOOD UREA NITROGEN 24.2 mg/dL (7-18)
[2021-11-12 09:21] LABS: CALCIUM 8.1 mg/dL (8.5-10.1); MAGNESIUM 2.1 mg/dL (1.8-2.4)
[2021-11-12] MEDS: SODIUM CHLORIDE 1,000 ML IV SCH ×2 (10:14→23:30)
[2021-11-12 13:50] VITALS: RESP 18
[2021-11-12] MEDS: ATORVASTATIN CA 10 MG TABLET (FP) PO SCH (21:35)
[2021-11-12] MEDS: CEFTRIAXONE 1 GM in DEXTROSE 5%-WATER - 50 ML IVPB SCH (21:36)
[2021-11-12] MEDS ORDERED: LACTOBACILLUS ACIDOPHILUS 1 TABLET PO SCH (22:00)
[2021-11-13] MEDS: HEPARIN NA (PORCINE) 5,000 UNITS/ML 1ML VIAL SQ SCH ×2 (06:16→14:39)
[2021-11-13 11:47] LABS: HEMATOCRIT 31.3 % (32.4-45.2); HEMOGLOBIN 10.2 GM/dL (10.7-15.3); MCH 24.9 pg (25.7-33.7); MCHC 32.5 g/dl (32.0-36.0); MEAN CELL VOLUME 76.6 fl (80-96); MEAN PLT VOLUME 7.8 fl (7.5-11.1); PLATELET COUNT 229 10^3/uL (134-434); RBC 4.09 M/mm3 (3.60-5.2); RDW 14.2 % (11.6-15.6); WHITE BLOOD COUNT 5.6 K/mm3 (4.0-10.0)
[2021-11-13 12:12] LABS: ALBUMIN 2.5 g/dl (3.4-5.0)
[2021-11-13 12:14] LABS: CALCIUM 8.1 mg/dL (8.5-10.1)
[2021-11-13 12:15] LABS: BLOOD UREA NITROGEN 15.8 mg/dL (7-18); CREATININE 1.1 mg/dL (0.55-1.3); MAGNESIUM 1.8 mg/dL (1.8-2.4)
[2021-11-13 12:16] LABS: BILIRUBIN,TOTAL 0.4 mg/dL (0.2-1); TOT PROT 6.2 g/dl (6.4-8.2)
[2021-11-13 12:18] LABS: PHOSPHOROUS 2.3 mg/dL (2.5-4.9)
[2021-11-13] MEDS ORDERED: CEFPODOXIME PROXETIL 100 MG TABLET PO SCH (13:30)
[2021-11-13 15:27] VITALS: BP 144/93; PULSE 88; TEMP 99.1
== END 2021-11-13 17:04 | disposition home or self-care (01) | DRG 690 ==
LOC: JER 12:45 → JERBED 14:47 → J5S 18:14
PROVIDERS: ADMIT Internal Medicine; ATTEND Internal Medicine
DX: N39.0 Urinary tract infection, site not specified (principal); N17.9 Acute kidney failure, unspecified; I50.32 Chronic diastolic (congestive) heart failure; I11.0 Hypertensive heart disease with heart failure; E78.5 Hyperlipidemia, unspecified; B96.20 Unspecified Escherichia coli [E. coli] as the cause of diseases classified elsewhere; E86.0 Dehydration
CPT/HCPCS: 36415; 71045-TC-FY; 76775-TC; 76856-TC; 80048; 80053; 82570; 83735; 84100; 84156; 84443; 85025; 85027; 87040; 93005; 93010; 99285-25; C9803-CS; J1644; U0003; U0005

== ENCOUNTER 2022-12-09 09:26 | Observation (INO) | payer BC ==
[2022-12-09] MEDS ORDERED: ACETAMINOPHEN 1000 MG/100 ML BAG IVPB ONE (09:58)
[2022-12-09] MEDS ORDERED: ACETAMINOPHEN INJECTION 100 ML IVPB ONE (10:06)
[2022-12-09 10:46] LABS: BASO % 0.7 % (0-2.0); EOS % 3.7 % (0-4.5); HEMATOCRIT 35.4 % (32.4-45.2); HEMOGLOBIN 11.7 GM/dL (10.7-15.3); LYMPH % 23.7 % (8-40); MCH 24.9 pg (25.7-33.7); MEAN CELL VOLUME 75.4 fl (80-96); MEAN PLT VOLUME 7.8 fl (7.5-11.1); MONO % 8.4 % (3.8-10.2); NEUT % 63.5 % (42.8-82.8); PLATELET COUNT 219 10^3/uL (134-434); RDW 16.1 % (11.6-15.6); WHITE BLOOD COUNT 7.4 K/mm3 (4.0-10.0)
[2022-12-09] MEDS ORDERED: ASPIRIN 81 MG CHEWABLE TABLETS PO ONE (11:41)
[2022-12-09] MEDS ORDERED: ASPIRIN 325 MG TABLET ONE (11:45)
[2022-12-09 11:54] LABS: CHLORIDE 106 mmol/L (98-107); SODIUM 138 mmol/L (136-145)
[2022-12-09 11:56] LABS: ALBUMIN 3.1 g/dl (3.4-5.0); BLOOD UREA NITROGEN 25.2 mg/dL (7-18); CO2 28 mmol/L (21-32); LIPASE 145 U/L (73-393)
[2022-12-09 11:58] LABS: GLUCOSE,RANDOM 86 mg/dL (74-106)
[2022-12-09 12:00] LABS: CREATININE 1.5 mg/dL (0.55-1.3); SGOT/AST 72 U/L (15-37)
[2022-12-09 12:01] LABS: BILIRUBIN,TOTAL 0.2 mg/dL (0.2-1)
[2022-12-09 12:03] LABS: ALK PHOS 66 U/L (45-117)
[2022-12-09 12:05] LABS: ANION GAP 4 MMOL/L (8-16); POTASSIUM 7.2 mmol/L (3.5-5.1); SGPT/ALT 31 U/L (13-61)
[2022-12-09] MEDS ORDERED: SODIUM CHLORIDE 1,000 ML IV SCH ×2 (12:45→14:09)
[2022-12-09] MEDS ORDERED: hydrALAZINE HCL 50 MG TABLET (FP) PO SCH ×2 (14:00→22:00)
[2022-12-09 14:25] LABS: POTASSIUM 3.8 mmol/L (3.5-5.1)
[2022-12-09 14:27] LABS: BLOOD UREA NITROGEN 25.5 mg/dL (7-18)
[2022-12-09 14:30] LABS: CREATININE 1.4 mg/dL (0.55-1.3)
[2022-12-09 15:48] LABS: EPI CELLS >36 /uL (0-25.1); HYALINE CASTS 0 /uL (0-3.1); PH,URINE 5.5 (5.0-8.0); URINE APPEARANCE CLOUDY; URINE BACTERIA 452 /uL (0-1359); URINE BILIRUBIN NEGATIVE (NEGATIVE); URINE COLOR YELLOW; URINE GLUCOSE (UA) NEGATIVE (NEGATIVE); URINE KETONE NEGATIVE (NEGATIVE); URINE LEUK ESTERASE TRACE (NEGATIVE); URINE NITRITE NEGATIVE (NEGATIVE); URINE PROTEIN 2+ (NEGATIVE); URINE RBC 24 /uL (0-23.9); URINE UROBILINOGEN 0.2 mg/dL (0.2-1.0); URINE WBC 54 /uL (0-25.8)
[2022-12-09 15:52] LABS: URINE UREA NITROGEN 281 mg/dL (350-1000)
[2022-12-09 16:15] LABS: YEAST NONE SEEN (NEGATIVE)
[2022-12-09 20:37] VITALS: BMI 39.2
[2022-12-09] MEDS: HEPARIN NA (PORCINE) 5,000 UNITS/ML 1ML VIAL SQ SCH (21:44)
[2022-12-09] MEDS ORDERED: ATORVASTATIN CA 40 MG TABLET (FP) PO SCH (22:00)
[2022-12-09] MEDS ORDERED: ATORVASTATIN CA 80 MG TABLET (FP) PO SCH (22:00)
[2022-12-10 08:12] LABS: POTASSIUM 4.2 mmol/L (3.5-5.1)
[2022-12-10 08:14] LABS: BASO % 0.7 % (0-2.0); EOS % 4.9 % (0-4.5); HEMATOCRIT 34.5 % (32.4-45.2); HEMOGLOBIN 11.7 GM/dL (10.7-15.3); MCH 25.5 pg (25.7-33.7); MEAN CELL VOLUME 75.1 fl (80-96); MEAN PLT VOLUME 7.8 fl (7.5-11.1); MONO % 8.1 % (3.8-10.2); NEUT % 61.3 % (42.8-82.8); PLATELET COUNT 208 10^3/uL (134-434); RBC 4.59 M/mm3 (3.60-5.2); RDW 15.7 % (11.6-15.6); WHITE BLOOD COUNT 7.3 K/mm3 (4.0-10.0)
[2022-12-10 08:18] LABS: ALBUMIN 3.2 g/dl (3.4-5.0); CALCIUM 8.6 mg/dL (8.5-10.1)
[2022-12-10 08:19] LABS: BLOOD UREA NITROGEN 28.5 mg/dL (7-18)
[2022-12-10 08:21] LABS: BILIRUBIN,TOTAL 0.1 mg/dL (0.2-1); CREATININE 1.4 mg/dL (0.55-1.3)
[2022-12-10 08:22] LABS: PHOSPHOROUS 4.1 mg/dL (2.5-4.9); TOT PROT 7.1 g/dl (6.4-8.2)
[2022-12-10] MEDS ORDERED: LABETALOL HCL 100 MG TABLET (FP) PO ONE (11:07)
[2022-12-10] MEDS: ASPIRIN 81 MG CHEWABLE TABLETS PO SCH (11:22)
[2022-12-10] MEDS: amLODIPine BESYLATE 5 MG TABLET (FP) PO SCH (11:22)
[2022-12-10] MEDS: SODIUM CHLORIDE 1,000 ML IV SCH (11:22)
[2022-12-10] MEDS: HEPARIN NA (PORCINE) 5,000 UNITS/ML 1ML VIAL SQ SCH ×2 (11:25→21:53)
[2022-12-10] MEDS ORDERED: REGADENOSON 0.4 MG/5 ML PRE-FILLED SYRINGE IVPUSH ONE ×2 (13:21→13:30)
[2022-12-10] MEDS ORDERED: ATORVASTATIN CA 40 MG TABLET (FP) PO SCH (22:00)
[2022-12-11] MEDS ORDERED: POLYETHYLENE GLYCOL (HEALTHYLAX) 3350 17 GM PACKET PO ONE (00:45)
[2022-12-11] MEDS: SODIUM CHLORIDE 1,000 ML IV SCH (04:42)
[2022-12-11 08:24] LABS: POTASSIUM 4.3 mmol/L (3.5-5.1)
[2022-12-11 08:29] LABS: CALCIUM 8.5 mg/dL (8.5-10.1); HEMATOCRIT 34.9 % (32.4-45.2); HEMOGLOBIN 11.3 GM/dL (10.7-15.3); MCH 24.8 pg (25.7-33.7); MCHC 32.2 g/dl (32.0-36.0); MEAN CELL VOLUME 76.9 fl (80-96); MEAN PLT VOLUME 7.6 fl (7.5-11.1); PLATELET COUNT 223 10^3/uL (134-434); RBC 4.55 M/mm3 (3.60-5.2); RDW 15.3 % (11.6-15.6); WHITE BLOOD COUNT 7.8 K/mm3 (4.0-10.0)
[2022-12-11 08:30] LABS: BLOOD UREA NITROGEN 22.8 mg/dL (7-18); MAGNESIUM 1.7 mg/dL (1.8-2.4)
[2022-12-11 08:31] LABS: CREATININE 1.2 mg/dL (0.55-1.3); PHOSPHOROUS 3.4 mg/dL (2.5-4.9)
[2022-12-11 08:33] LABS: BILIRUBIN,TOTAL 0.1 mg/dL (0.2-1); TOT PROT 6.9 g/dl (6.4-8.2)
[2022-12-11] MEDS: HEPARIN NA (PORCINE) 5,000 UNITS/ML 1ML VIAL SQ SCH ×2 (09:48→09:52)
[2022-12-11] MEDS: ASPIRIN 81 MG CHEWABLE TABLETS PO SCH (09:49)
[2022-12-11] MEDS: amLODIPine BESYLATE 5 MG TABLET (FP) PO SCH (09:49)
[2022-12-11 15:44] VITALS: BP 159/98; PULSE 92; RESP 20; TEMP 98.9
== END 2022-12-11 15:59 | disposition home or self-care (01) ==
LOC: JER 09:26 → JERBED 12:25 → J4W 17:29
PROVIDERS: ADMIT Internal Medicine; ATTEND Internal Medicine
PROC: 3E033NZ Introduction of Analgesics, Hypnotics, Sedatives into Peripheral Vein, Percutaneous Approach (ICD-10-PCS; principal; 2022-12-09)
PROC: 3E033GC Introduction of Other Therapeutic Substance into Peripheral Vein, Percutaneous Approach (ICD-10-PCS; 2022-12-09)
PROC: 3E0337Z Introduction of Electrolytic and Water Balance Substance into Peripheral Vein, Percutaneous Approach (ICD-10-PCS; 2022-12-09)
DX: R74.8 Abnormal levels of other serum enzymes (principal); R07.89 Other chest pain; N17.9 Acute kidney failure, unspecified; I11.0 Hypertensive heart disease with heart failure; I50.9 Heart failure, unspecified; E87.5 Hyperkalemia; E78.5 Hyperlipidemia, unspecified; E66.9 Obesity, unspecified; Z68.39 Body mass index [BMI] 39.0-39.9, adult; Z87.891 Personal history of nicotine dependence
CPT/HCPCS: 36415; 71045-TC-FY; 78452-TC; 80048; 80053; 80061; 81003; 82570; 83036; 83690; 83735; 83935; 84100; 84156; 84300; 84443; 84484; 84540; 85025; 85027; 93005; 93010; 93017; 93306-TC; 96374; 96375; 97116-GP; 99285-25; A9502; G0378; J1644; J2785